=== PATIENT | female | born 1990 | race Two or more races ===

== ENCOUNTER 2022-06-03 20:26 | Inpatient (IN) | payer OTHER ==
[~2022-06-03] VITALS: Ht 152.4 cm; Wt 60.8 kg
[2022-06-03] MEDS ORDERED: PRENATAL + DHA1 EAC1 PO (23:37)
[2022-06-03] MEDS ORDERED: IRON PO (23:38)
== END 2022-06-07 17:36 | disposition home or self-care (01) | DRG 807 ==
LOC: LDR 20:26 → OB/GYN 06-05 16:12
PROVIDERS: ADMIT Specialist; ATTEND Specialist
PROC: 4A1HXCZ Monitoring of Products of Conception, Cardiac Rate, External Approach (ICD-10-PCS; 2022-06-03)
PROC: 10E0XZZ Delivery of Products of Conception, External Approach (ICD-10-PCS; principal; 2022-06-05)
PROC: 0W8NXZZ Division of Female Perineum, External Approach (ICD-10-PCS; 2022-06-05)
DX: O80 Encounter for full-term uncomplicated delivery (principal); Z37.0 Single live birth; Z3A.40 40 weeks gestation of pregnancy; Z20.822 Contact with and (suspected) exposure to COVID-19